=== PATIENT | female | born 1980 | race Caucasian/White ===

== ENCOUNTER 2017-02-26 13:46 | Emergency (ER) | payer OTHER ==
[~2017-02-26] VITALS: Ht 177.8 cm; Wt 149.7 kg
[2017-02-26 14:18] LABS: BILIRUBIN,URINE NEGATIVE (NEG); GLUCOSE,URINE NEGATIVE (NEG); NITRITE,URINE NEGATIVE (NEG); PROTEIN,URINE NEGATIVE (NEG-TRACE)
[2017-02-26 14:21] LABS: CALCIUM 9.1 mg/dL (8.5-10.1); CREATININE 0.7 mg/dL (0.6-1.0); GFR 94.7; POTASSIUM 3.7 mmol/L (3.5-5.1)
[2017-02-26 14:26] LABS: ALBUMIN 3.4 g/dL (3.4-5.0); ALBUMIN/GLOBULIN RATIO 0.9 (1.0-1.7); TOTAL BILIRUBIN 0.3 mg/dL (0.2-1.0); TOTAL PROTEIN 7.2 g/dL (6.4-8.2)
[2017-02-26 14:28] LABS: BACTERIA,URINE 0 /HPF (0-FEW); RBC,URINE 0 /HPF (0-2); SQUAMOUS EPITHELIAL CELL,UR MOD /LPF
[2017-02-26] MEDS ORDERED: KETOROLAC TROMETHAMINE 30 MG/ML INJ. IV ONE (14:30)
[2017-02-26] MEDS ORDERED: ONDANSETRON PF 4 MG/2 ML VIAL. IV ONE (14:30)
[2017-02-26] MEDS ORDERED: fentaNYL PF VIAL 100 MCG/2 ML VIAL IV ONE ×2 (14:30→17:15)
--- NOTE | 2017-02-26 15:27 | PHYS DOC ---
Past Medical History Past Medical History: Kidney Stone Additional Past Surgical Histo: LITHOTRIPSY Alcohol Use: Occasionally Drug Use: None Adult General Chief Complaint Chief Complaint: ABDOMINAL PAIN HPI HPI Patient is a 36 year old female who presents with 1 day of crampy bilateral abdominal pain and flank pain, worse on the right than left. States she feels the urge to have a bowel movement, and has had 2 normal bowel movements today. She also has slight urinary frequency and nausea. She denies dysuria, hematuria , fever or chills, constipation, dark or bloody stools, vaginal bleeding or discharge, chest pain, dyspnea, rash, injury. States this is similar to prior diagnosis of kidney stone where she had to have lithotripsy. Review of Systems Review of Systems Constitutional: Denies fever or chills [] Eyes: Denies change in visual acuity, redness, or eye pain [] HENT: Denies nasal congestion or sore throat [] Respiratory: Denies cough or shortness of breath [] Cardiovascular: No additional information not addressed in HPI [] GI: Denies vomiting, bloody stools or diarrhea [] : Denies dysuria or hematuria [] Musculoskeletal: Denies back pain or joint pain [] Integument: Denies rash or skin lesions [] Neurologic: Denies headache, focal weakness or sensory changes [] Endocrine: Denies polyuria or polydipsia [] Current Medications Current Medications Current Medications Medications (Trade) Dose Ordered Sig/[facility] Start Time Stop Time Status Last Admin Dose Admin Dicyclomine HCl (Bentyl) 10 mg 1X ONCE 02/26/17 17:00 02/26/17 17:01 DC 02/26/17 16:57 10 MG Fentanyl Citrate (Fentanyl 2ml Vial) 75 mcg 1X ONCE 02/26/17 17:15 02/26/17 17:16 DC 02/26/17 17:26 75 MCG Ketorolac Tromethamine (Toradol) 15 mg 1X ONCE 02/26/17 14:30 02/26/17 14:31 DC 02/26/17 14:25 15 MG Ondansetron HCl (Zofran) 4 mg 1X ONCE 02/26/17 14:30 02/26/17 14:31 DC 02/26/17 14:23 4 MG Allergies Allergies Allergies Coded Allergies Type Severity Reaction Last Updated Verified No Known Drug Allergies 02/26/17 No Physical Exam Physical Exam Constitutional: Well developed, well nourished, no acute distress, non-toxic appearance. [] HENT: Normocephalic, atraumatic, bilateral external ears normal, oropharynx moist, nose normal. [] Eyes: PERRLA, EOMI. [] Neck: Normal range of motion, supple. [] Cardiovascular:Heart rate regular rhythm [] Lungs & Thorax: Bilateral breath sounds clear to auscultation [] Abdomen: Bowel sounds normal, soft, mild mid right>left tenderness, no guarding or rebound. [] Skin: Warm, dry, no erythema, no rash. [] Back: No midline spinal tenderness. Has mild right>left CVA tenderness. [] Extremities: No tenderness, ROM intact, no edema. [] Neurologic: Alert and oriented X 3, normal motor function, normal sensory function, no focal deficits noted. [] Psychologic: Affect normal, judgement normal, mood normal. [] Current Patient Data Vital Signs Vital Signs Date Time Temp Pulse Resp B/P (MAP) Pulse Ox O2 Delivery O2 Flow Rate FiO2 02/26/17 17:26 20 97 Room Air 02/26/17 15:52 52 147/80 (102) 02/26/17 13:52 97.7 97.7 Lab Values Laboratory Tests Test 02/26/17 12:59 02/26/17 13:52 02/26/17 14:00 POC Urine HCG, Qualitative Hcg negative (Negative) Urine Collection Type Unknown Urine Color Yellow Urine Clarity Clear Urine pH 6.0 Urine Specific Boyd 1.020 Urine Protein Negative mg/dL (NEG-TRACE) Urine Glucose (UA) Negative mg/dL (NEG) Urine Ketones (Stick) Negative mg/dL (NEG) Urine Blood Negative (NEG) Urine Nitrite Negative (NEG) Urine Bilirubin Negative (NEG) Urine Urobilinogen Dipstick 1.0 mg/dL (0.2 mg/dL) Urine Leukocyte Esterase Negative (NEG) Urine RBC 0 /HPF (0-2) Urine WBC 1-4 /HPF (0-4) Urine Squamous Epithelial Cells Mod /LPF Urine Bacteria 0 /HPF (0-FEW) Urine Mucus Slight /LPF Sodium Level 140 mmol/L (136-145) Potassium Level 3.7 mmol/L (3.5-5.1) Chloride Level 104 mmol/L (98-107) Carbon Dioxide Level 28 mmol/L (21-32) Anion Gap 8 (6-14) Blood Urea Nitrogen 8 mg/dL (7-20) Creatinine 0.7 mg/dL (0.6-1.0) Estimated GFR (Cockcroft-Gault) 94.7 BUN/Creatinine Ratio 11 (6-20) Glucose Level 98 mg/dL (70-99) Calcium Level 9.1 mg/dL (8.5-10.1) Total Bilirubin 0.3 mg/dL (0.2-1.0) Aspartate Amino Transferase (AST) 18 U/L (15-37) Alanine Aminotransferase (ALT) 22 U/L (14-59) Alkaline Phosphatase 91 U/L (46-116) Total Protein 7.2 g/dL (6.4-8.2) Albumin 3.4 g/dL (3.4-5.0) Albumin/Globulin Ratio 0.9 (1.0-1.7) L Lipase 87 U/L (73-393) Laboratory Tests 02/26/17 14:00 Radiology/Procedures Radiology/Procedures CT abdomen and pelvis without contrast per radiology Bilateral, nonobstructing renal calculi, measuring up to 3-4 mm on the left. Otherwise nonacute. Course & Med Decision Making Course & Med Decision Making Pertinent Labs and Imaging studies reviewed. (See chart for details) Workup is unremarkable. Encouraged symptomatic care with MiraLAX and dicyclomine. Return precautions given. She understands and agrees with plan. Dragon Disclaimer Dragon Disclaimer This electronic medical record was generated, in whole or in part, using a voice recognition dictation system. Departure Departure Impression: Primary Impression: Abdominal pain Disposition: HOME, SELF-CARE Condition: STABLE Referrals: NO PCP (PCP) Patient Instructions: Abdominal Pain, [id number] Additional Instructions: Take MiraLAX for possible constipation. Take dicyclomine as needed for pain. Take metoclopramide as needed for nausea. Follow-up with your primary care doctor. Return for any concerns. Scripts Metoclopramide Hcl (REGLAN) 10 Mg Tablet 1 TAB PO TID Y for NAUSEA, #10 TAB Prov: Kate CARO MD 02/26/17 Dicyclomine Hcl (DICYCLOMINE HCL) 10 Mg Capsule 1 CAP PO PRN Q6HRS Y for PAIN, #30 CAP 0 Refills Prov: Kate CARO MD 02/26/17 Problem Qualifiers Primary Impression: Abdominal pain Abdominal location: generalized Qualified Codes: R10.84 - Generalized abdominal pain Kate CARO MD February 26, 2017 15:27
[2017-02-26] MEDS ORDERED: DICYCLOMINE HCL 10 MG CAPSULE PO ONE (17:00)
[2017-02-26 17:22] VITALS: BP 153/71
[2017-02-26] MEDS ORDERED: METO10TA81 PO (17:34)
[2017-02-26] MEDS ORDERED: DICY10CA3 PO (17:34)
--- NOTE | 2017-02-26 19:26 | RAD ---
INDICATION: Bilateral flank pain, right greater than left; history of stones and lithotripsy. COMPARISON: None TECHNIQUE: Axial CT images obtained through the abdomen and pelvis without the use of intravenous contrast. Coronal and sagittal reformats are provided. One or more of the following individualized dose reduction techniques were utilized for this examination: 1. Automated exposure control; 2. Adjustment of the mA and/or kV according to patient size; 3. Use of iterative reconstruction technique. FINDINGS: Visualized lung bases appear clear. Detailed evaluation of intra-abdominal and pelvic organs and vascular structures is limited secondary to lack of IV contrast. Within this limitation, the liver, spleen, pancreas, and adrenal glands demonstrate no focal abnormality. A single 3-4 mm calculus is present within the inferior left kidney. A punctate calculus is seen within the mid right kidney. No hydronephrosis is present bilaterally. No definite ureteral calculi are seen, no hydroureter is present. Pelvic phleboliths are present within the left hemipelvis. The gallbladder is distended without intraluminal gallstones, wall thickening or pericholecystic fluid seen. The GI tract demonstrates no dilated bowel loops to suggest obstruction. The appendix appears normal in caliber in the right lower quadrant. The urinary bladder demonstrates no focal abnormality. No intra-abdominal or pelvic free fluid, free air or significant lymphadenopathy is seen. Uterus and bilateral adnexa demonstrate no focal abnormality. The aorta is normal in caliber. Visualized osseous structures and overlying soft tissues demonstrate no acute or suspicious finding. IMPRESSION: Bilateral, nonobstructing renal calculi, measuring up to 3-4 mm on the left. Electronically signed by: Marian Reynoso (February 26, 2017 15:55:53)
== END 2017-02-26 17:56 | disposition home or self-care (01) ==
LOC: ER 13:46
DX: R10.84 Generalized abdominal pain (principal)
CPT/HCPCS: 36415; 74176; 80053; 81001; 83690; 84703; 96374; 96375; 96376; 99285; J1885; J2405; J3010; 81025